=== PATIENT | male | born 1950 | race Caucasian/White ===

== ENCOUNTER 2020-06-25 13:03 | Outpatient (CLI) | payer MEDICARE, OTHER, SELFPAY ==
--- NOTE | 2020-06-25 13:30 | XR_ITS ---
WS: [id number] XR KUB [id number] REASON FOR EXAM: RENAL STONE FINDINGS: The abdomen is unchanged compared to previous examination of 06/18/2019. Unremarkable bowel gas pattern and no free air. Complex staple lines in the right lower quadrant. There is a small area of calcification closely asso ciated with the medial aspect of the staple and not along the course of the right ureter as based on previous CT scan 03/27/2019. No urinary tract calculi are identified. XR/XR KUB [id number] IMPRESSION: No urinary tract calculi are identified.
== END 2020-06-25 13:04 | disposition home or self-care (01) ==
LOC: RAD 13:06
PROVIDERS: Family Provider Family Medicine; PCP Family Medicine; Visit Provider Urology
DX: N20.0 Calculus of kidney (principal)
CPT/HCPCS: 74018; 81003; 84153

== ENCOUNTER 2020-07-08 07:50 | Outpatient (CLI) | payer MEDICARE, OTHER, SELFPAY ==
--- NOTE | 2020-07-08 08:15 | XR_ITS ---
WS: [id number] Exam: XR KUB [id number] Date/Time of Exam: 07/08/2020 8:15 AM Reason For Exam: stones Comparison 06/25/2020. No abnormal calcifications identified in the region of the kidneys. No bowel obstruction or free air. Moderate amount of stool in the large bowel. Surgical sutures in the right abdomen. Visualized organ margins are intact. Partial fusion of the right SI joint. XR/XR KUB [id number] IMPRESSION: 1. No abnormal calcifications identified in the region of the kidneys. 2. Constipation. 3. No acute abdominal or pelvic finding.
== END 2020-07-08 07:51 | disposition home or self-care (01) ==
LOC: RAD 07:53
PROVIDERS: PCP Family Medicine; Visit Provider Urology
DX: N20.0 Calculus of kidney (principal); K59.00 Constipation, unspecified
CPT/HCPCS: 74018; 81003

== ENCOUNTER 2020-12-23 08:30 | Outpatient (CLI) | payer MEDICARE, OTHER, SELFPAY ==
--- NOTE | 2020-12-23 08:42 | XRR_ITS ---
PROCEDURE INFORMATION: Exam: XR Abdomen Exam date and time: 12/23/2020 8:44 AM Age: 70 years old Clinical indication: Condition or disease; Kidney or ureter condition; Calculus (stone) in kidney; Prior surgery; Surgery type: Appendix; Additional info: Renal calculi TECHNIQUE: Imaging protocol: XR of the abdomen. Views: Frontal supine view of the abdomen. 1 View. COMPARISON: CR XR KUB [id number] 07/08/2020 8:02 AM FINDINGS: Gastrointestinal tract: Normal. No bowel dilation. Intraperitoneal space: Surgical sutures are present in the right side of the abdomen. Organs: No calcifications are seen in the projection of the kidneys or ureters. Stable phleboliths are present in the left lower pelvis. Bones/joints: Degenerative changes are present in the spine. XR/XR KUB [id number] IMPRESSION: No acute abnormality. No urinary calcifications are seen.
== END 2020-12-23 08:31 | disposition home or self-care (01) ==
PROVIDERS: PCP Family Medicine; Visit Provider Urology
DX: N20.0 Calculus of kidney (principal)
CPT/HCPCS: 74018

== ENCOUNTER 2020-12-23 21:00 | Outpatient (CLI) | payer MEDICARE, OTHER, SELFPAY | END 2020-12-23 21:01 | disposition home or self-care (01) | LOC: RAD 11-05 14:37 | PROVIDERS: PCP Family Medicine; Visit Provider Urology | DX: R97.20 Elevated prostate specific antigen [PSA] (principal); N20.1 Calculus of ureter | CPT/HCPCS: 81003; 82365; 84153; 88300 ==

== ENCOUNTER 2021-02-03 08:57 | Outpatient (CLI) | payer MEDICARE, SELFPAY ==
--- NOTE | 2021-02-03 09:00 | XR_ITS ---
WS: [id number] Exam: XR KUB [id number] Date/Time of Exam: 02/03/2021 9:30 AM Reason For Exam: N20.0 - Calculus of kidney No bowel obstruction or free air noted. No calcifications superimposing the renal silhouettes. Surgic al sutures noted in the right abdomen. Nonspecific pelvic calcifications. Visualized organ margins ar e intact. Degenerative changes of the lumbar spine and SI joints. XR/XR KUB [id number] IMPRESSION: 1. No calcifications seen in the region of the kidneys. 2. No acute abdominal process. Nonspecific bilateral pelvic calcifications.
== END 2021-02-03 08:58 | disposition home or self-care (01) ==
LOC: RAD 09:01
PROVIDERS: PCP Family Medicine; Visit Provider Urology
DX: N20.0 Calculus of kidney (principal)
CPT/HCPCS: 74018; 81003

== ENCOUNTER 2021-08-06 09:20 | Outpatient (CLI) | payer MEDICARE, OTHER, SELFPAY | END 2021-08-06 09:21 | disposition home or self-care (01) | LOC: LAB 09:26 | PROVIDERS: PCP Family Medicine; Visit Provider Urology | DX: R97.20 Elevated prostate specific antigen [PSA] (principal) | CPT/HCPCS: 81003; 84153 ==

== ENCOUNTER → 2022-01-28 10:25 | Outpatient (BNVA) | payer MEDICARE, OTHER, SELFPAY | PROVIDERS: PCP Family Medicine; Referring Provider Urology; Visit Provider Urology | DX: R97.20 Elevated prostate specific antigen [PSA] (principal) | CPT/HCPCS: 84153 ==

== ENCOUNTER → 2022-02-04 08:13 | Outpatient (BNVA) | payer MEDICARE, OTHER, SELFPAY | PROVIDERS: PCP Family Medicine; Visit Provider Urology | DX: N20.0 Calculus of kidney (principal); R97.20 Elevated prostate specific antigen [PSA] | CPT/HCPCS: 81003; 99213 ==

== ENCOUNTER → 2022-08-09 11:32 | Outpatient (BNVA) | payer MEDICARE, OTHER, SELFPAY | PROVIDERS: PCP Family Medicine; Visit Provider Urology | DX: R97.20 Elevated prostate specific antigen [PSA] (principal) | CPT/HCPCS: 84153 ==

== ENCOUNTER → 2022-08-12 07:52 | Outpatient (BNVA) | payer MEDICARE, OTHER, SELFPAY | PROVIDERS: PCP Family Medicine; Visit Provider Urology | DX: R97.20 Elevated prostate specific antigen [PSA] (principal); N20.0 Calculus of kidney | CPT/HCPCS: 81003; 99213 ==